=== PATIENT | female | born 1985 | race Caucasian/White ===

== ENCOUNTER 2017-09-30 17:11 | Emergency (ER) | payer OTHER ==
[~2017-09-30] VITALS: Ht 162.6 cm; Wt 77.1 kg
[2017-09-30 17:11] VITALS: BP 144/97
--- NOTE | 2017-09-30 18:15 | NUR ---
Pierre ROTH at bedside for exam. Pt no longer at bedside. Pt eloped from facility.
== END 2017-09-30 18:15 | disposition left against medical advice (07) ==
LOC: ER 17:13
DX: K13.79 Other lesions of oral mucosa (principal); Z53.21 Procedure and treatment not carried out due to patient leaving prior to being seen by health care provider
CPT/HCPCS: A4606; Z7610